=== PATIENT | male | born 1960 | race African-American/Black ===

== ENCOUNTER → 2024-07-30 | Outpatient (REF) | payer MEDICARE, MEDICAID ==
[~2024-07-30] MED LIST: AMLO1TAB25 PO; BENA25TA4 PO; HYDR-2773 PO; LISI40TA52 PO; LITH300C PO; TRAZ-252 PO; WELLTAB38 PO
[2024-07-30 17:34] LABS: CREATININE, URINE 100.7 MG/DL; MAU/CREAT RATIO 12.9 MCG/MG (0.0-30.0)
[2024-07-30 17:38] LABS: ALBUMIN 3.8 G/DL (3.2-5.2); ALKALINE PHOSPHATASE 65 U/L (46-116); ALT/SGPT 37 U/L (7.0-40); AST/SGOT 44 U/L (<34); BILIRUBIN,TOTAL 0.2 MG/DL (0.3-1.2); BLOOD UREA NITROGEN 21 MG/DL (9-23); CALCIUM LEVEL 9.5 MG/DL (8.3-10.6); CARBON DIOXIDE LEVEL 27 MMOL/L (20-31); CHLORIDE LEVEL 108 MMOL/L (98-107); CHOLESTEROL LEVEL 179 MG/DL (<200); CREATININE FOR GFR 0.76 MG/DL (0.70-1.30); GLOMERULAR FILTRATION RATE > 60.0 (>49); GLUCOSE, FASTING 93 MG/DL (74-106); POTASSIUM SERUM 3.9 MMOL/L (3.5-5.1); SODIUM LEVEL 137 MMOL/L (136-145); TOTAL PROTEIN 7.5 G/DL (5.7-8.2); TRIGLYCERIDES LEVEL 157 MG/DL (<150)
[2024-07-30 17:40] LABS: THYROID STIMULATING HORMONE 1.093 uIU/ML (0.55-4.78); TOTAL 25(OH) VITAMIN D 30.8 NG/ML (20.0-100.0)
[2024-07-30 17:41] LABS: VITAMIN B12 LEVEL 432 PG/ML (211-911)
[2024-07-30 18:34] LABS: HEMOGLOBIN A1c 5.3 % (4.0-6.0)
[2024-07-30 23:39] LABS: CHOLESTEROL RISK RATIO 4.04 (<5); HDL CHOLESTEROL 44.2 MG/DL (>40); LDL CHOLESTEROL 103.4 MG/DL (<100); NON-HDL-C 134.8 MG/DL
== END ==
LOC: M LAB REF 16:32
PROVIDERS: ATTEND Physician Assistant
DX: E55.9 Vitamin D deficiency, unspecified (principal); I10 Essential (primary) hypertension; F10.21 Alcohol dependence, in remission; Z79.899 Other long term (current) drug therapy

== ENCOUNTER → 2025-06-02 | Outpatient (RCR) | payer OTHER, MEDICAID | LOC: M PT 05-03 11:57 | DX: M54.16 Radiculopathy, lumbar region (principal) ==

== ENCOUNTER → 2025-08-22 | Outpatient (CLI) | payer MEDICARE, MEDICAID ==
[2025-08-22 10:34] LABS: APPEARANCE, URINE CLEAR (CLEAR); BACTERIA, URINE AUTO NEGATIVE (NEGATIVE); BILIRUBIN, URINE AUTO NEGATIVE (NEGATIVE); BLOOD, URINE BLOOD NEGATIVE (NEGATIVE); GLUCOSE, URINE (UA) AUTO NEGATIVE (NEGATIVE); KETONE, URINE AUTO NEGATIVE (NEGATIVE); LEUKOCYTE ESTERASE, URINE AUTO TRACE (NEGATIVE); NITRITE, URINE AUTO NEGATIVE (NEGATIVE); PROTEIN, URINE AUTO NEGATIVE (NEGATIVE); RBC, URINE AUTO 0 /HPF (0-3); SPECIFIC GRAVITY URINE AUTO 1.020 (1.002-1.035); SQUAMOUS EPITHELIAL CELL UR AU 0 /HPF (0-6); UROBILINOGEN, URINE AUTO 0.2 mg/dL (0.0-2.0); WBC, URINE AUTO 1 /HPF (0-3)
[2025-08-22 10:42] LABS: BASO # 0.1 10^3/uL (0.0-0.2); BASO % 0.9 % (0.0-1.0); EOS # 0.2 10^3/uL (0.0-0.5); EOS % 3.6 % (0.0-3.0); LYMPH # 1.6 10^3/uL (1.5-5.0); LYMPH % 28.1 % (24.0-44.0); MONO # 0.6 10^3/uL (0.0-0.8); MONO % 11.0 % (2.0-8.0); NEUTROPHILS # 3.3 10^3/uL (1.5-8.5); NEUTROPHILS % 56.1 % (36.0-66.0); PLATELET COUNT, AUTOMATED 229 10^3/uL (150-450)
[2025-08-22 11:05] LABS: ESTIMATED AVERAGE GLUCOSE 123.0 MG/DL (60-110)
[2025-08-22 11:07] LABS: ALT/SGPT 20 U/L (7.0-40); AST/SGOT 15 U/L (<34); CALCIUM LEVEL 9.0 MG/DL (8.3-10.6); CARBON DIOXIDE LEVEL 25 MMOL/L (20-31); CHLORIDE LEVEL 106 MMOL/L (98-107); CHOLESTEROL LEVEL 160 MG/DL (<200); CHOLESTEROL RISK RATIO 4.55 (<5); CREATININE FOR GFR 0.89 MG/DL (0.70-1.30); CREATININE, URINE 131.7 MG/DL; GLOMERULAR FILTRATION RATE > 90.0 (>49); LDL CHOLESTEROL 92.9 MG/DL (<100); MALB URINE SIEMENS 14.0 MG/L; MAU/CREAT RATIO 10.6 MCG/MG (0.0-30.0); NON-HDL-C 124.9 MG/DL; POTASSIUM SERUM 3.9 MMOL/L (3.5-5.1); SODIUM LEVEL 141 MMOL/L (136-145); TRIGLYCERIDES LEVEL 160 MG/DL (<150)
[2025-08-22 11:10] LABS: TOTAL 25(OH) VITAMIN D 39.5 NG/ML (20.0-100.0)
[2025-08-23 15:17] LABS: PSA % FREE 40.0 % (calc) (>25); PSA FREE 0.2 ng/mL; PSA TOTAL 0.5 ng/mL (< OR = 4.0)
== END ==
LOC: M LAB 08:21
PROVIDERS: ATTEND Physician Assistant
DX: I10 Essential (primary) hypertension (principal)